=== PATIENT | female | born 1955 | race Caucasian/White ===

== ENCOUNTER 2016-08-02 00:04 | Observation (INO) | payer OTHER ==
[2016-08-02 00:10] VITALS: BMI 27.8
--- NOTE | 2016-08-02 00:49 | ED PDOC ---
Arrival/HPI - General Chief Complaint: Syncope Time Seen by Provider: 08/02/16 00:18 Historian: Patient - History of Present Illness Narrative History of Present Illness (Text): 08/02/16 00:46 Simran Alamo is a 60 year old female, whose past medical history includes hypertension, hyperlipidemia, and hypothyroidism, who presents to the ED accompanied by relative complaining of dizziness and near-syncope. Patient states she has been experiencing dizziness intermittently for the last 3 months , which worsened yesterday. Relative notes patient was at [employer] yesterday when she became unsteady on her feet, weak, and had near-syncopal episode. Daughter denies any loss of consciousness. Patient also complaining of a headache. Patient denies any fever, chills, chest pain, shortness of breath, abdominal pain, nausea, vomiting, diarrhea, back pain, neck pain, or any other complaints. PMD: Dr. Anahi Dodson Time/Duration: Other (yesterday) Symptom Onset: Gradual Symptom Course: Unchanged Activities at Onset: Light Context: Home Past Medical History - Provider Review Nursing Documentation Reviewed: Yes - Infectious Disease Hx of Infectious Diseases: None - Cardiac Hx Hypertension: Yes - Endocrine/Metabolic Hx Hypothyroidism: Yes - Musculoskeletal/Rheumatological Other/Comment: Restless leg syndrome - Psychiatric Hx Substance Use: No - Surgical History Hx Cholecystectomy: Yes Hx Orthopedic Surgery: Yes (jae shoulder surgery) Hx Tubal Ligation: Yes - Anesthesia Hx Anesthesia: Yes Hx Anesthesia Reactions: No Hx Malignant Hyperthermia: No Family/Social History - Physician Review Nursing Documentation Reviewed: Yes Family/Social History: No Known Family HX Smoking Status: Never Smoked Hx Alcohol Use: No Hx Substance Use: No Allergies/Home Meds Allergies/Adverse Reactions: Allergies No Known Allergies Allergy (Verified 08/02/16 00:10) Home Medications: Home Meds Medication Instructions Recorded Confirmed Aspirin [Adult Low Dose Aspirin EC] 1 tab PO DAILY 08/02/16 08/02/16 Gabapentin [Neurontin] 1 cap PO DAILY 08/02/16 08/02/16 Levothyroxine [Synthroid] 1 tab PO DAILY 08/02/16 08/02/16 Metoprolol Succinate [Toprol XL] 1 tab PO DAILY 08/02/16 08/02/16 Simvastatin [Simvastatin] 1 tab PO HS 08/02/16 08/02/16 Review of Systems - Physician Review All systems were reviewed & negative as marked: Yes - Review of Systems Constitutional: Normal. absent: Fevers Eyes: Normal ENT: Normal Respiratory: Normal. absent: SOB, Cough Cardiovascular: Other (+near-syncope). absent: Chest Pain Gastrointestinal: Normal. absent: Abdominal Pain, Diarrhea, Nausea, Vomiting Genitourinary Female: Normal. absent: Dysuria, Frequency, Hematuria, Urine Output Changes Musculoskeletal: Normal. absent: Back Pain, Neck Pain Skin: Normal. absent: Rash Neurological: Headache, Dizziness Endocrine: Normal Hemo/Lymphatic: Normal Psychiatric: Normal Physical Exam Vital Signs Reviewed: Yes Vital Signs Temp Pulse Resp BP Pulse Ox 08/02/16 03:42 82 18 133/78 100 08/02/16 02:04 86 18 100 08/02/16 00:14 98.7 F 86 18 124/74 99 Temperature: Afebrile Blood Pressure: Normal Pulse: Regular Respiratory Rate: Normal Appearance: Positive for: Well-Appearing, Non-Toxic, Comfortable Pain Distress: None Mental Status: Positive for: Alert and Oriented X 3 Finger Stick Blood Glucose: 124 - Systems Exam Head: Present: Atraumatic, Normocephalic Pupils: Present: PERRL Extroacular Muscles: Present: EOMI Conjunctiva: Present: Normal Mouth: Present: Moist Mucous Membranes Pharnyx: Present: Normal. No: ERYTHEMA, EXUDATE, TONSILS ENLARGED, Peritonsilar Swelling, Uvular Deviation, Muffled/Hoarse Voice, Strider, Soft Palate/Uvular Edema Neck: Present: Normal Range of Motion. No: Meningeal Signs, MIDLINE TENDERNESS , Paraspinal Tenderness Respiratory/Chest: Present: Clear to Auscultation, Good Air Exchange. No: Respiratory Distress, Accessory Muscle Use Cardiovascular: Present: Regular Rate and Rhythm, Normal S1, S2. No: Murmurs Abdomen: Present: Normal Bowel Sounds. No: Tenderness, Distention, Peritoneal Signs Back: Present: Normal Inspection Upper Extremity: Present: Normal Inspection. No: Cyanosis, Edema Lower Extremity: Present: Normal Inspection. No: Edema Neurological: Present: GCS=15, CN II-XII Intact, Speech Normal, Motor Func Grossly Intact, Normal Sensory Function, Normal Cerebellar Funct Skin: Present: Warm, Dry, Normal Color. No: Rashes Psychiatric: Present: Alert, Oriented x 3, Normal Insight, Normal Concentration Medical Decision Making ED Course and Treatment: 08/02/16 00:46 Impression: 60 y/o female c/o dizziness and near-syncope. Differential Diagnosis included but are not limited to: near -syncope vs. vertigo Plan: -- CT Head w/o contrast -- EKG -- CXR -- Labs, cardiac enzymes -- Antivert -- Tylenol -- Reassess and disposition Reviewed EKG, NSR at [address]-segment elevations or depressions, no T-wave inversions, normal intervals. 08/02/16 01:26 Reviewed radiology, CXR shows no active disease. CT Head shows: Streak artifact limits evaluation of the skull base. No evidence of acute intracranial hemorrhage. Correlate clinically. 08/02/16 03:[address] Dodson, who requests pt go to hospitalist service. Pt is no acute distress. Discussed results and hospital observation plan with pt , who is aware and verbalizes understanding. 08/02/16 04:07 Case discussed with medical registrar telemetry monitor, who is aware and agrees with plan. House physician paged. 08/02/16 04:[address] Lebron, who is aware and agrees with plan. Accept pt in to hospitalist service. Pt will go to Telemetry observation for near-syncope, vertigo, and headache. - Lab Interpretations Lab Results: 08/02/16 01:24 08/02/16 01:24 Lab Results 08/02/16 01:24: PT 10.5, INR 0.97, APTT 24.8 08/02/16 01:24: WBC 9.7, RBC 4.53, Hgb 13.0, Hct 39.0, MCV 86.1, MCH 28.7, MCHC 33.3, RDW 13.9, Plt Count 265, MPV 9.7 08/02/16 01:24: Sodium 142, Potassium 3.6, Chloride 104, Carbon Dioxide 31, Anion Gap 11, BUN 17, Creatinine 0.8, Est GFR ( Amer) > 60, Est GFR (Non- Af Amer) > 60, Random Glucose 79, Calcium 10.0, Total Bilirubin 0.3, AST 31, ALT 24, Alkaline Phosphatase 68, Lactate Dehydrogenase 412, Total Creatine Kinase 71, Troponin I < 0.01, Total Protein 8.4 H, Albumin 4.4, Globulin 4.0, Albumin/Globulin Ratio 1.1 I have reviewed the lab results: Yes - RAD Interpretation Narrative RAD Interpretations (Text): CT Head shows: Brain: Areas of decreased attenuation noted within the periventricular and subcortical white matter likely related to chronic microangiopathic ischemic changes given the patient's stated age.Streak artifact limits evaluation of the skull base. No evidence of acute intracranial hemorrhage. Correlate clinically. There is mild diffuse cerebral atrophy present, consistent with this patient's age. Ventricles: Unremarkable. No ventriculomegaly. Bones/joints: See above. Soft tissues: Unremarkable. Sinuses: Partial opacification of the left sphenoid sinus. Mastoid air cells: Unremarkable as visualized. No mastoid effusion. IMPRESSION: Streak artifact limits evaluation of the skull base. No evidence of acute intracranial hemorrhage. Correlate clinically. CXR shows no active disease. Radiology Orders: 08/02/16 00:49 HEAD W/O CONTRAST [CT] Stat 08/02/16 00:51 CHEST PORTABLE [RAD] Stat Eligibility Supervisor: ED Physician, Radiologist - EKG Interpretation Interpreted by ED Physician: Yes Type: 12 lead EKG - Medication Orders Current Medication Orders: Discontinued Medications Acetaminophen (Tylenol 325mg Tab) 650 mg PO STAT STA Stop: 08/02/16 00:53 Last Admin: 08/02/16 01:15 Dose: 650 mg Re-Assess: JOSE Pain/Vitals Document 08/02/16 02:15 GMD (Rec: 08/02/16 03:10 GMD [id number]) Pain Reassessment Is This A Pain ReAssessment? No Sleep Is patient sleeping during reassessment? No Presence of Pain Presence of Pain Yes Location Pain Location Body Aspar[place]uncher Diphenhydramine HCl (Benadryl) 25 mg IVP ONCE ONE Stop: 08/02/16 03:09 Last Admin: 08/02/16 03:37 Dose: 25 mg Meclizine HCl (Antivert) 25 mg PO STAT STA Stop: 08/02/16 00:53 Last Admin: 08/02/16 01:15 Dose: 25 mg Metoclopramide HCl (Reglan) 10 mg IVP ONCE ONE Stop: 08/02/16 03:09 Last Admin: 08/02/16 03:37 Dose: 10 mg - Scribe Statement The provider has reviewed the documentation as recorded by the Scribe Bridget Jesus Provider Attestation: All medical record entries made by the Tiff were at my direction and personally dictated by me. I have reviewed the chart and agree that the record accurately reflects my personal performance of the history, physical exam, medical decision making, and the department course for this patient. I have also personally directed, reviewed, and agree with the discharge instructions and disposition. Disposition/Present on Arrival - Present on Arrival Any Indicators Present on Arrival: No History of DVT/PE: No History of Uncontrolled Diabetes: No Urinary Catheter: No History of Decub. Ulcer: No History Surgical Site Infection Following: None - Disposition Have Diagnosis and Disposition been Completed?: Yes Diagnosis: Near syncope, Vertigo, Headache Disposition: HOSPITALIZED Disposition Time: 03:14 Patient Plan: Observation Patient Problems: Current Active Problems Problem Status Onset Headache Acute Near syncope Acute Vertigo Acute Condition: STABLE
[2016-08-02 01:41] LABS: MEAN CELL VOLUME 86.1 fL (80.0-105.0); MEAN CORPUSCULAR HEMOGLOBIN 28.7 pg (25.0-35.0); MEAN CORPUSCULAR HGB CONC 33.3 g/dl (31.0-37.0); MEAN PLATELET VOLUME 9.7 fl (7.0-11.0); RED CELL DISTRIBUTION WIDTH 13.9 % (11.5-14.5); WHITE BLOOD COUNT 9.7 10^3/ul (4.5-11.0)
[2016-08-02 01:47] LABS: ALB/GLOB RATIO 1.1 (1.1-1.8); ALKALINE PHOSPHATASE 68 U/L (38-133); ALT/SGPT 24 U/L (7-56); AST/SGOT 31 U/L (15-39); BILIRUBIN,TOTAL 0.3 mg/dL (0.2-1.3); BLOOD UREA NITROGEN 17 mg/dL (7-21); CARBON DIOXIDE 31 mmol/L (21-33); CHLORIDE 104 mmol/L (98-107); GFR AFRICAN-AMERICAN > 60; GLUCOSE,RANDOM 79 mg/dL (70-110); POTASSIUM 3.6 mmol/L (3.6-5.0); SODIUM 142 mmol/L (132-148); TOTAL PROTEIN 8.4 g/dL (5.8-8.3)
[2016-08-02 01:48] LABS: INR 0.97 (0.93-1.08); PARTIAL THROMBOPLASTIN TIME 24.8 Seconds (23.7-30.8)
[2016-08-02 02:04] LABS: TROPONIN I < 0.01 ng/mL
[2016-08-02] MEDS ORDERED: DiphenhydrAMINE 50 mg/ml Inj IVP ONE (03:08)
--- NOTE | 2016-08-02 06:11 | CP.PCM.HP ---
History of Present Illness - History of Present Illness History of Present Illness: The patient is a 60 year old woman with a history of hypothyroidism, dyslipidemia and hypertension who presents with acute on chronic dizziness with intractable headaches. These symptoms have been occurring for about 3 months but became more severe over the past 2-3 days. Specifically, 2 days ago, while at a green party, she suddenly became dizzy and almost lost her balance and fell. Her headaches effect her entire head and are "throbbing" in character. She denies changes in vision, photophobia, recent head trauma, sleep disturbances, dietary changes, dehydration, chest pain, loss of conciseness, F/C, focal neuro deficits or SOB. Present on Admission - Present on Admission Any Indicators Present on Admission: No History of DVT/PE: No History of Uncontrolled Diabetes: No Review of Systems - Review of Systems All systems: reviewed and no additional remarkable complaints except - Constitutional Constitutional: As Per HPI - EENT Eyes: As Per HPI Ears: As Per HPI Nose/Mouth/Throat: As Per HPI - Cardiovascular Cardiovascular: As Per HPI - Respiratory Respiratory: As Per HPI - Gastrointestinal Gastrointestinal: As Per HPI - Genitourinary Genitourinary: As Per HPI - Neurological Neurological: As Per HPI Past Patient History - Infectious Disease Hx of Infectious Diseases: None - Past Medical History & Family History Past Family History: Reviewed and not pertinent - Past Social History Smoking Status: Never Smoked Chewing Tobacco Use: No Alcohol: None Drugs: Denies - CARDIAC Hx Cardiac Disorders: Yes Hx Hypercholesterolemia: Yes Hx Hypertension: Yes - PULMONARY Hx Respiratory Disorders: No - NEUROLOGICAL Hx Neurological Disorder: Yes Hx Dizziness: Yes - HEENT Hx HEENT Problems: No - RENAL Hx Chronic Kidney Disease: No - ENDOCRINE/METABOLIC Hx Endocrine Disorders: Yes Hx Hypothyroidism: Yes - HEMATOLOGICAL/ONCOLOGICAL Hx Blood Disorders: No - INTEGUMENTARY Hx Dermatological Problems: No - MUSCULOSKELETAL/RHEUMATOLOGICAL Hx Falls: No - GASTROINTESTINAL Hx Gastrointestinal Disorders: No - GENITOURINARY/GYNECOLOGICAL Hx Genitourinary Disorders: No - PSYCHIATRIC Hx Substance Use: No - SURGICAL HISTORY Hx Surgeries: Yes Hx Cholecystectomy: Yes Hx Orthopedic Surgery: Yes (b/t shoulder surgery due to rotator cuff tear) - ANESTHESIA Hx Anesthesia: Yes Hx Anesthesia Reactions: No Hx Malignant Hyperthermia: No Meds Allergies/Adverse Reactions: Allergies Allergy/AdvReac Type Severity Reaction Status Date / Time No Known Allergies Allergy Verified 08/02/16 00:10 Physical Exam - Constitutional Appears: Well - Head Exam Head Exam: ATRAUMATIC, NORMAL INSPECTION, NORMOCEPHALIC - Eye Exam Eye Exam: EOMI, Normal appearance, PERRL Pupil Exam: NORMAL ACCOMODATION, PERRL - ENT Exam ENT Exam: Mucous Membranes Moist, Normal Exam - Neck Exam Neck exam: Positive for: Normal Inspection - Respiratory Exam Respiratory Exam: Clear to Auscultation Bilateral, NORMAL BREATHING PATTERN - Cardiovascular Exam Cardiovascular Exam: REGULAR RHYTHM - GI/Abdominal Exam GI & Abdominal Exam: Normal Bowel Sounds, Soft. absent: Tenderness - Rectal Exam Rectal Exam: Deferred - Extremities Exam Extremities exam: Positive for: normal inspection - Neurological Exam Neurological exam: Alert, CN II-XII Intact, Normal Gait, Oriented x3, Reflexes Normal Results - Vital Signs Recent Vital Signs: Last Vital Signs Temp 98.2 F 08/02/16 05:44 Pulse 79 08/02/16 05:44 Resp 20 08/02/16 05:44 BP 100/52 L 08/02/16 05:44 Pulse Ox 98 08/02/16 05:44 - Labs Result Diagrams: 08/02/16 06:40 08/02/16 06:40 - Imaging and Cardiology CT scan - head Status: Report reviewed by me Chest x-ray Status: Image reviewed by me Assessment & Plan - Assessment and Plan (Free Text) Assessment: A/P: The patient is a 60 year old woman with a history of hypothyroidism, dyslipidemia and hypertension who is being admitted for observation for acute on chronic vertigo and headaches, which may be due to peripheral vertigo vs migraine ROBERSON's vs CVA. 1. Acute on Chronic Vertigo and Headaches: -ddx: vertigo vs migraine ROBERSON's vs CVA vs endocrine related -neurology consult placed -neuro checks Q4hrs -fall precautions -IVF's -check orthostatics -PRN Zofran for N/V -PRN Tylenol for ROBERSON -2D-echo ordered to evaluate for structural disease -check thyroid function tests, lipid panel and HgA1c 2. Hypertension: -continue home regimen -heart healthy diet 3. Dyslipidemia: -Lipitor 10mg po qhs -check lipid panel 4. Hypothyroidism: -continue home dose of Synthroid -check TSH and FT4 DVT PPx: SC Heparain and SCD's GI PPx: Protonix
[2016-08-02] MEDS: Sodium Chloride 0.9% 1,000 ML IV SCH ×2 (06:43→17:38)
[2016-08-02 06:50] LABS: ADD MANUAL DIFF? NO
--- NOTE | 2016-08-02 07:00 | RAD ---
HISTORY: dizzy COMPARISON: 04/15/2016 FINDINGS: LUNGS: Poor inspiration with low lung volumes mild crowded markings and mild bibasilar atelectasis PLEURA: No significant pleural effusion identified, no pneumothorax apparent. CARDIOVASCULAR: Normal. OSSEOUS STRUCTURES: Small metallic density (possibly surgical metallic anchor) overlying the left humeral head VISUALIZED UPPER ABDOMEN: Normal. OTHER FINDINGS: None. IMPRESSION: Poor inspiration with low lung volumes mild crowded markings and mild bibasilar atelectasis
[2016-08-02 07:16] LABS: BASO # 0.08 K/mm3 (0.0-2.0); BASO % 0.7 % (0.0-3.0); EOS # 0.5 (0.0-0.7); EOS % 4.2 % (1.5-5.0); GRAN # 5.26 (1.4-6.5); GRAN % 47.4 % (50.0-68.0); HEMATOCRIT 36.6 % (36.0-48.0); LYMPH # 4.6 (1.2-3.4); LYMPH % 41.7 % (22.0-35.0); MEAN CELL VOLUME 85.5 fL (80.0-105.0); MEAN CORPUSCULAR HGB CONC 32.8 g/dl (31.0-37.0); MEAN PLATELET VOLUME 9.8 fl (7.0-11.0); MONO # 0.7 (0.1-0.6); PLATELET COUNT 242 10^3/uL (120.0-450.0); RED CELL DISTRIBUTION WIDTH 13.8 % (11.5-14.5); WHITE BLOOD COUNT 11.1 10^3/ul (4.5-11.0)
--- NOTE | 2016-08-02 07:21 | CT ---
PROCEDURE: CT HEAD WITHOUT CONTRAST. HISTORY: headache COMPARISON: None available. TECHNIQUE: Axial computed tomography images were obtained through the head/brain without intravenous contrast. Radiation dose: Total exam DLP = 629.06 mGy-cm. This CT exam was performed using one or more of the following dose reduction techniques: Automated exposure control, adjustment of the mA and/or kV according to patient size, and/or use of iterative reconstruction technique. FINDINGS: HEMORRHAGE: No acute parenchymal, subarachnoid or extra-axial hemorrhage. BRAIN: Suspect mild subcortical white matter ischemic changes. VENTRICLES: Unremarkable. No hydrocephalus. CALVARIUM: Unremarkable. PARANASAL SINUSES: Mild aerosolized mucosal thickening left chamber sphenoid sinus MASTOID AIR CELLS: Unremarkable as visualized. No inflammatory changes. OTHER FINDINGS: None. IMPRESSION: No acute intracranial hemorrhage. Suspect mild subcortical white matter ischemic changes. Toggle
[2016-08-02 07:22] LABS: ALB/GLOB RATIO 1.1 (1.1-1.8); ALKALINE PHOSPHATASE 64 U/L (38-133); ALT/SGPT 26 U/L (7-56); AST/SGOT 25 U/L (15-39); BILIRUBIN,TOTAL 0.2 mg/dL (0.2-1.3); BLOOD UREA NITROGEN 16 mg/dL (7-21); CALCIUM 9.7 mg/dL (8.4-10.5); CARBON DIOXIDE 25 mmol/L (21-33); CHLORIDE 108 mmol/L (98-107); FREE T4 0.84 ng/dL (0.78-2.19); GFR AFRICAN-AMERICAN > 60; GLUCOSE,RANDOM 95 mg/dL (70-110); MAGNESIUM 1.9 mg/dL (1.7-2.2); PHOSPHOROUS 4.2 mg/dL (2.5-4.5); POTASSIUM 3.6 mmol/L (3.6-5.0); SODIUM 137 mmol/L (132-148); TOTAL PROTEIN 7.4 g/dL (5.8-8.3)
[2016-08-02 07:36] LABS: THYROID STIMULATING HORMONE 4.78 mIU/mL (0.46-4.68)
[2016-08-02] MEDS: Levothyroxine 50 MCG TAB PO SCH (07:39)
[2016-08-02] MEDS: Pantoprazole 40 mg EC Tab PO SCH (07:39)
[2016-08-02] MEDS ORDERED: Metoprolol Succinate 50 mg XL Tab PO SCH (10:00)
--- NOTE | 2016-08-02 12:36 | CARD ---
APPROVED REPORT EKG Measurement Heart [id number] <Conclusion> Normal sinus rhythm Normal ECG
--- NOTE | 2016-08-02 19:15 | CARD ---
APPROVED REPORT EXAM: Two-dimensional and M-mode echocardiogram with Doppler and color Doppler. INDICATION LVFX/STRUCTURAL HEART DISEASE 2D DIMENSIONS Left Atrium (2D)3.2 (1.6-4.0cm)IVSd0.8 (0.7-1.1cm) LVDd4.2 (3.9-5.9cm)PWd0.8 (0.7-1.1cm) LVDs2.9 (2.5-4.0cm)FS (%) 30.0 % LVEF (%)57.6 (>50%) M-Mode DIMENSIONS Aortic Root2.80 (2.2-3.7cm)Aortic Cusp Exc.1.40 (1.5-2.0cm) Aortic Valve AoV Peak Aipiwbkn872.0cm/Nita Peak GR.7mmHgAI P 1/2 Afpb374sw Mitral Valve MV E Xxvwnyfz03.0cm/sMV A Odwgskax23.5cm/sE/A ratio1.0 TDI Lateral E' Peak V12.20cm/sMedial E' Peak V7.80cm/sE/Lateral E'6.1 E/Medial E'9.5 Pulmonary Valve PV Peak Noxhayas45.6cm/sPV Peak Grad.2mmHg Tricuspid Valve TR Peak Ojhfffml777hq/sRAP SOXIMKCI57xgLhNY Peak Gr.25mmHg [id number] LEFT VENTRICLE The left ventricle is normal size. There is normal left ventricular wall thickness. The left ventricular function is normal. There is normal LV segmental wall motion. The left ventricular diastolic function is normal. No left ventricle thrombus noted on this study. There is no ventricular septal defect visualized. There is no left ventricular aneurysm. There is no mass noted in the left ventricle. RIGHT VENTRICLE The right ventricle is normal size. There is normal right ventricular wall thickness. The right ventricular systolic function is normal. ATRIA The left atrium size is normal. The right atrium size is normal. The interatrial septum is intact with no evidence for an atrial septal defect. AORTIC VALVE The aortic valve is thickened but opens well. No aortic regurgitation is present. There is no aortic valvular stenosis. There is no aortic valvular vegetation. MITRAL VALVE The mitral valve is thickened but opens well. Mitral regurgitation is mild. There is no mitral valve stenosis. There is no evidence of mitral valve prolapse. TRICUSPID VALVE The tricuspid valve leaflets are thickened , but open well. There is trace to mild tricuspid regurgitation.RVSP-35 mmofHGg There is no tricuspid valve stenosis. PULMONIC VALVE The pulmonary valve is normal in structure. GREAT VESSELS The aortic root is normal in size. The ascending aorta is normal in size. The pulmonary artery is normal. The IVC is normal in size and collapses >50% with inspiration. PERICARDIAL EFFUSION There is no pleural effusion. There is no pericardial effusion. <Conclusion> Normal chamber Size-55-60%. Trace to Mild TR-RVSP-35 mmof Hg. Mild MR no vegetation or thrombus noted.
--- NOTE | 2016-08-02 19:21 | CON ---
DATE: 08/02/2016 HISTORY OF PRESENT ILLNESS: This is a 60-year-old female with a past medical history of hypothyroidi sm, hypertension and chronic dizziness; has been having symptoms for more than 3 months, came with th e complaint of still becoming dizzy and lose balance. Denies any nausea or vomiting. No visual prob lems. PAST MEDICAL HISTORY: As above. SOCIAL HISTORY: Does not smoke, does not drink. PHYSICAL EXAMINATION: VITAL SIGNS: Blood pressure 100/52. HEENT: Normocephalic, atraumatic. NECK: Supple. NEUROLOGIC: Alert, awake, and oriented x 3. No aphasia. Cranial nerves II-XII were tested. Pupils reactive. EOM intact. Visual bazan full. No facial asymmetry. Tongue midline. Motor examinatio n: Moves all the extremities equally. Tone normal. Deep tendon reflexes are 1+. Both plantars are downgoing. Sensory appears intact. Cerebellar and gait deferred. IMPRESSION: A 60-year-old female with past medical history of hypothyroidism, dyslipidemia, hyperten dylon, admitted with chronic vertigo and headache. CAT scan of the head was negative and workup is in progress. We will do the MRI and carotid Doppler. We will follow up. Davon Pearce MD cc: [id number] TT: 08/02/2016 19:21:08 Confirmation # [id number] Dictation # [id number] radha
[2016-08-03 05:51] VITALS: O2SAT 96
[2016-08-03 06:48] LABS: ADD MANUAL DIFF? NO
[2016-08-03 06:53] LABS: BASO # 0.06 K/mm3 (0.0-2.0); BASO % 0.7 % (0.0-3.0); EOS # 0.4 (0.0-0.7); EOS % 5.1 % (1.5-5.0); GRAN # 3.62 (1.4-6.5); GRAN % 41.7 % (50.0-68.0); LYMPH % 46.7 % (22.0-35.0); MEAN CORPUSCULAR HEMOGLOBIN 27.9 pg (25.0-35.0); MEAN CORPUSCULAR HGB CONC 32.9 g/dl (31.0-37.0); MEAN PLATELET VOLUME 9.3 fl (7.0-11.0); MONO # 0.5 (0.1-0.6); MONO % 5.8 % (1.0-6.0); PLATELET COUNT 224 10^3/uL (120.0-450.0); RED CELL DISTRIBUTION WIDTH 13.7 % (11.5-14.5); WHITE BLOOD COUNT 8.7 10^3/ul (4.5-11.0)
[2016-08-03 08:26] LABS: ALKALINE PHOSPHATASE 55 U/L (38-133); ALT/SGPT 26 U/L (7-56); AST/SGOT 28 U/L (15-39); BILIRUBIN,TOTAL 0.2 mg/dL (0.2-1.3); BLOOD UREA NITROGEN 12 mg/dL (7-21); CALCIUM 9.1 mg/dL (8.4-10.5); CARBON DIOXIDE 26 mmol/L (21-33); CHLORIDE 108 mmol/L (98-107); CHOLESTEROL 141 mg/dL (130-200); GFR AFRICAN-AMERICAN > 60; GLUCOSE,RANDOM 96 mg/dL (70-110); POTASSIUM 3.4 mmol/L (3.6-5.0); SODIUM 140 mmol/L (132-148); TOTAL PROTEIN 6.7 g/dL (5.8-8.3)
[2016-08-03] MEDS ORDERED: Potassium Chloride 40 mEq/30 ml LIQ UD PO ONE (09:12)
[2016-08-03] MEDS ORDERED: Gadodiamide 287 MG/ML VIAL (15ML) IV ONE (10:02)
--- NOTE | 2016-08-03 10:36 | MRI ---
PROCEDURE: MRI BRAIN WITH AND WITHOUT CONTRAST HISTORY: near syncope COMPARISON: None. TECHNIQUE: Multiplanar, multisequence MR images of the brain were obtained with and without intravenous contrast enhancement. 15 cc of Omniscan FINDINGS: HEMORRHAGE: None DWI: No evidence of an acute or early subacute infarction. BRAIN PARENCHYMA: No mass,mass effect or edema. No atrophy or chronic microvascular ischemic changes. ENHANCEMENT: No abnormal intracranial enhancement. VENTRICLES: Unremarkable. No hydrocephalus. CRANIUM: Unremarkable. ORBITS: Grossly unremarkable. PARANASAL SINUSES/MASTOIDS: Mucosal thickening in the ethmoid sinuses and partial opacification VASCULAR SYSTEM: Skull base flow voids intact. OTHER FINDINGS: None . IMPRESSION: No acute intracranial findings. Ethmoid sinusitis
[2016-08-03] MEDS ORDERED: Metoprolol Succinate 50 mg XL Tab PO SCH (11:19)
[2016-08-03] MEDS: Pantoprazole 40 mg EC Tab PO SCH (11:55)
[2016-08-03] MEDS: Levothyroxine 50 MCG TAB PO SCH (11:58)
[2016-08-03 12:31] VITALS: RESP 20; TEMP 98
--- NOTE | 2016-08-03 14:39 | US ---
PROCEDURE: Bilateral carotid artery duplex ultrasound HISTORY: Carotid stenosis syncope. PHYSICIAN(S): Tino Carranza MD. TECHNIQUE: Duplex sonography and color-flow Doppler were used to evaluate the carotid bifurcations and limited segments of the vertebral arteries bilaterally. FINDINGS: There is mild smooth heterogeneous plaque noted at the carotid bifurcations bilaterally. The peak systolic velocity in the proximal right internal carotid artery is 68 cm/sec. This corresponds to a 20 to 39% proximal right ICA stenosis. Normal systolic velocities are noted in the proximal right external carotid artery. There is antegrade flow in the right vertebral artery. The peak systolic velocity in the proximal left internal carotid artery is 69 cm/sec. This corresponds to a 20 to 39% proximal left ICA stenosis. Normal systolic velocities are noted in the proximal left external carotid artery. There is antegrade flow in the left vertebral artery. IMPRESSION: 1. Bilateral 20-39% proximal ICA stenoses. 2. Antegrade flow in both vertebral arteries.
--- NOTE | 2016-08-03 14:59 | CP.PCM.DIS ---
<Alexandra Hanson - Last Filed: 08/03/16 15:34> Provider - Provider Date of Admission: 08/02/16 03:14 Attending physician: Saadia Gomes MD Primary care physician: Dr. Dodson Consults: Dr. Kiel Pearce Time Spent in preparation of Discharge (in minutes): 35 Hospital Course - Lab Results Lab Results: Most Recent Lab Values WBC 8.7 10^3/ul (4.5-11.0) D 08/03/16 06:30 RBC 4.12 10^6/uL (3.5-6.1) 08/03/16 06:30 Hgb 11.5 gm/dL (12.0-16.0) L 08/03/16 06:30 Hct 35.0 % (36.0-48.0) L 08/03/16 06:30 MCV 85.0 fL (80.0-105.0) 08/03/16 06:30 MCH 27.9 pg (25.0-35.0) 08/03/16 06:30 MCHC 32.9 g/dl (31.0-37.0) 08/03/16 06:30 RDW 13.7 % (11.5-14.5) 08/03/16 06:30 Plt Count 224 10^3/uL (120.0-450.0) 08/03/16 06:30 MPV 9.3 fl (7.0-11.0) 08/03/16 06:30 Gran % 41.7 % (50.0-68.0) L 08/03/16 06:30 Lymph % (Auto) 46.7 % (22.0-35.0) H 08/03/16 06:30 Benson % (Auto) 5.8 % (1.0-6.0) 08/03/16 06:30 Eos % (Auto) 5.1 % (1.5-5.0) H 08/03/16 06:30 Baso % (Auto) 0.7 % (0.0-3.0) 08/03/16 06:30 Gran # 3.62 (1.4-6.5) 08/03/16 06:30 Lymph # 4.0 (1.2-3.4) H 08/03/16 06:30 Benson # 0.5 (0.1-0.6) 08/03/16 06:30 Eos # 0.4 (0.0-0.7) 08/03/16 06:30 Baso # 0.06 K/mm3 (0.0-2.0) 08/03/16 06:30 PT 10.5 Seconds (9.9-11.8) 08/02/16 01:24 INR 0.97 (0.93-1.08) 08/02/16 01:24 APTT 24.8 Seconds (23.7-30.8) 08/02/16 01:24 Sodium 140 mmol/L (132-148) 08/03/16 06:30 Potassium 3.4 mmol/L (3.6-5.0) L 08/03/16 06:30 Chloride 108 mmol/L (98-107) H 08/03/16 06:30 Carbon Dioxide 26 mmol/L (21-33) 08/03/16 06:30 Anion Gap 9 (10-20) L 08/03/16 06:30 BUN 12 mg/dL (7-21) 08/03/16 06:30 Creatinine 0.6 mg/dL (0.5-1.4) 08/03/16 06:30 Est GFR ( Amer) > 60 08/03/16 06:30 Est GFR (Non-Af Amer) > 60 08/03/16 06:30 POC Glucose (mg/dL) 124 mg/dL (65-110) H 08/02/16 00:24 Random Glucose 96 mg/dL (70-110) 08/03/16 06:30 Calcium 9.1 mg/dL (8.4-10.5) 08/03/16 06:30 Phosphorus 4.2 mg/dL (2.5-4.5) 08/02/16 06:40 Magnesium 1.9 mg/dL (1.7-2.2) 08/02/16 06:40 Total Bilirubin 0.2 mg/dL (0.2-1.3) 08/03/16 06:30 AST 28 U/L (15-39) 08/03/16 06:30 ALT 26 U/L (7-56) 08/03/16 06:30 Alkaline Phosphatase 55 U/L (38-133) 08/03/16 06:30 Lactate Dehydrogenase 412 U/L (333-699) 08/02/16 01:24 Total Creatine Kinase 71 U/L (35-230) 08/02/16 01:24 Troponin I < 0.01 ng/mL 08/02/16 01:24 Total Protein 6.7 g/dL (5.8-8.3) 08/03/16 06:30 Albumin 3.4 g/dL (3.0-4.8) 08/03/16 06:30 Globulin 3.3 gm/dL 08/03/16 06:30 Albumin/Globulin Ratio 1.0 (1.1-1.8) L 08/03/16 06:30 Triglycerides 168 mg/dL (35-160) H 08/03/16 06:30 Cholesterol 141 mg/dL (130-200) 08/03/16 06:30 LDL Cholesterol Direct 60 mg/dL (0-129) 08/03/16 06:30 HDL Cholesterol 50 mg/dL (29-60) 08/03/16 06:30 Free T4 0.84 ng/dL (0.78-2.19) 08/02/16 06:40 TSH 3rd Generation 4.78 mIU/mL (0.46-4.68) H 08/02/16 06:40 - Hospital Course Hospital Course: 60 year old woman with a history of hypothyroidism, dyslipidemia and hypertension who presents with acute on chronic dizziness with intractable headaches. These symptoms have been occurring for about 3 months but became more severe over the past 2-3 days. Specifically, 2 days ago, while at a [employer], she suddenly became dizzy and almost lost her balance and fell. Head CT is negative. Under observation for near syncope and intractable headaches. On floor, home medications were restarted and pt is orthostatic pressure positive, treated with IVF and had HTN medications held. Brain MRI is also without acute hemorrhage and carotid dopplers showed 20%-39% proximal ICA stenosis. Pt discharged in good condition with the following instructions: You are discharged home. Please continue your home medications with the exception of a change to your metoprolol prescription: Metoprolol succinate 25 mg by mouth once daily. Please see your primary care physician within a week of discharge from hospital. Please return to the emergency department for worsening of symptoms. Discharge Exam - Head Exam Head Exam: ATRAUMATIC, NORMAL INSPECTION, NORMOCEPHALIC - Eye Exam Eye Exam: EOMI, Normal appearance Pupil Exam: NORMAL ACCOMODATION, PERRL - ENT Exam ENT Exam: Mucous Membranes Moist, Normal Exam - Respiratory Exam Respiratory Exam: NORMAL BREATHING PATTERN, UNREMARKABLE - Cardiovascular Exam Cardiovascular Exam: Tachycardia, +S1, +S2 - GI/Abdominal Exam GI & Abdominal Exam: Soft. absent: Tenderness - Exam External exam: absent: Lacerations, Swelling - Extremities Exam Extremities exam: normal capillary refill, pedal pulses present - Neurological Exam Neurological exam: Alert, Oriented x3 - Skin Skin Exam: Intact, Normal Color Discharge Plan - Discharge Medications Prescriptions: Metoprolol Succinate [Toprol XL] 25 mg PO DAILY #14 tab - Follow Up Plan Condition: STABLE Disposition: HOME/ ROUTINE Additional Instructions: You are discharged home. Please continue your home medications with the exception of a change to your metoprolol prescription: Metoprolol succinate 25 mg by mouth once daily. Please see your primary care physician within a week of discharge from hospital. Please return to the emergency department for worsening of symptoms. Referrals: Radha Dodson MD [Family Provider] - <Saadia Gomes - Last Filed: 08/03/16 16:08> Provider - Provider Date of Admission: 08/02/16 03:14 Attending physician: Saadia Gomes MD Hospital Course - Lab Results Lab Results: Most Recent Lab Values WBC 8.7 10^3/ul (4.5-11.0) D 08/03/16 06:30 RBC 4.12 10^6/uL (3.5-6.1) 08/03/16 06:30 Hgb 11.5 gm/dL (12.0-16.0) L 08/03/16 06:30 Hct 35.0 % (36.0-48.0) L 08/03/16 06:30 MCV 85.0 fL (80.0-105.0) 08/03/16 06:30 MCH 27.9 pg (25.0-35.0) 08/03/16 06:30 MCHC 32.9 g/dl (31.0-37.0) 08/03/16 06:30 RDW 13.7 % (11.5-14.5) 08/03/16 06:30 Plt Count 224 10^3/uL (120.0-450.0) 08/03/16 06:30 MPV 9.3 fl (7.0-11.0) 08/03/16 06:30 Gran % 41.7 % (50.0-68.0) L 08/03/16 06:30 Lymph % (Auto) 46.7 % (22.0-35.0) H 08/03/16 06:30 Benson % (Auto) 5.8 % (1.0-6.0) 08/03/16 06:30 Eos % (Auto) 5.1 % (1.5-5.0) H 08/03/16 06:30 Baso % (Auto) 0.7 % (0.0-3.0) 08/03/16 06:30 Gran # 3.62 (1.4-6.5) 08/03/16 06:30 Lymph # 4.0 (1.2-3.4) H 08/03/16 06:30 Benson # 0.5 (0.1-0.6) 08/03/16 06:30 Eos # 0.4 (0.0-0.7) 08/03/16 06:30 Baso # 0.06 K/mm3 (0.0-2.0) 08/03/16 06:30 PT 10.5 Seconds (9.9-11.8) 08/02/16 01:24 INR 0.97 (0.93-1.08) 08/02/16 01:24 APTT 24.8 Seconds (23.7-30.8) 08/02/16 01:24 Sodium 140 mmol/L (132-148) 08/03/16 06:30 Potassium 3.4 mmol/L (3.6-5.0) L 08/03/16 06:30 Chloride 108 mmol/L (98-107) H 08/03/16 06:30 Carbon Dioxide 26 mmol/L (21-33) 08/03/16 06:30 Anion Gap 9 (10-20) L 08/03/16 06:30 BUN 12 mg/dL (7-21) 08/03/16 06:30 Creatinine 0.6 mg/dL (0.5-1.4) 08/03/16 06:30 Est GFR ( Amer) > 60 08/03/16 06:30 Est GFR (Non-Af Amer) > 60 08/03/16 06:30 POC Glucose (mg/dL) 124 mg/dL (65-110) H 08/02/16 00:24 Random Glucose 96 mg/dL (70-110) 08/03/16 06:30 Calcium 9.1 mg/dL (8.4-10.5) 08/03/16 06:30 Phosphorus 4.2 mg/dL (2.5-4.5) 08/02/16 06:40 Magnesium 1.9 mg/dL (1.7-2.2) 08/02/16 06:40 Total Bilirubin 0.2 mg/dL (0.2-1.3) 08/03/16 06:30 AST 28 U/L (15-39) 08/03/16 06:30 ALT 26 U/L (7-56) 08/03/16 06:30 Alkaline Phosphatase 55 U/L (38-133) 08/03/16 06:30 Lactate Dehydrogenase 412 U/L (333-699) 08/02/16 01:24 Total Creatine Kinase 71 U/L (35-230) 08/02/16 01:24 Troponin I < 0.01 ng/mL 08/02/16 01:24 Total Protein 6.7 g/dL (5.8-8.3) 08/03/16 06:30 Albumin 3.4 g/dL (3.0-4.8) 08/03/16 06:30 Globulin 3.3 gm/dL 08/03/16 06:30 Albumin/Globulin Ratio 1.0 (1.1-1.8) L 08/03/16 06:30 Triglycerides 168 mg/dL (35-160) H 08/03/16 06:30 Cholesterol 141 mg/dL (130-200) 08/03/16 06:30 LDL Cholesterol Direct 60 mg/dL (0-129) 08/03/16 06:30 HDL Cholesterol 50 mg/dL (29-60) 08/03/16 06:30 Free T4 0.84 ng/dL (0.78-2.19) 08/02/16 06:40 TSH 3rd Generation 4.78 mIU/mL (0.46-4.68) H 08/02/16 06:40 Attending/Attestation - Attestation I have personally seen and examined this patient.: Yes I have fully participated in the care of the patient.: Yes I have reviewed all pertinent clinical information, including history, physical exam and plan: Yes Notes (Text): 08/03/16 16:05 60 year old female with past medical history of hypothyroidism, dyslipidemia and hypertension who presented with complaint of dizziness, headache and pre- syncope. She was admitted for observation. CT head and MRI brain were negative for acute findings. Carotid doppler and echo were also reviewed. Orthostatics were positive and she was started on iv fluids. Her metoprolol dose was decreased. Her symptoms improved. Patient is discharged home today. Follow up with pmd Dr. Dodson. Saadia Gomes MD Hospitalist.
[2016-08-03 18:11] VITALS: BP 117/66; PULSE 91
== END 2016-08-03 18:20 | disposition home or self-care (01) ==
LOC: ED 00:04 → ERH 03:14 → 2RSO 04:08
PROVIDERS: ADMIT Internal Medicine; ATTEND Internal Medicine
DX: R55 Syncope and collapse (principal); R42 Dizziness and giddiness; I10 Essential (primary) hypertension; E78.5 Hyperlipidemia, unspecified; E03.9 Hypothyroidism, unspecified; R51 Headache
CPT/HCPCS: 36415; 70450; 70553; 71010; 80053; 80061; 82550; 82948; 83615; 83735; 84100; 84439; 84443; 84484; 85025; 85027; 85610; 85730; 93005; 93306; 93880; 96372; 96374; 96375; 99285; A9579; G0378; J1200; J1644; J2765; J3480; J7040

== ENCOUNTER 2018-07-20 15:18 | Outpatient (CLI) | payer OTHER | END 2018-07-20 15:19 | disposition home or self-care (01) | LOC: RAD 15:18 ==